=== PATIENT | female | born 1935 | race African-American/Black ===

== ENCOUNTER → 2016-06-06 | Outpatient (CLI) | payer MEDICARE ==
[2015-09-13 13:50] VITALS: BP 147/72
[~2016-06-06] MED LIST: AMLO10TA2 PO; ATOR40TA PO; HYDR-2868 PO; METF500T4 PO; OMEP20TA63 PO; POTA10TA5 PO; VALS1TAB22 PO
--- NOTE | 2016-06-06 12:13 | FMS ---
EXAM: Chest, 2 views. HISTORY: Cough. COMPARISON: 09/13/2015. FINDINGS: Frontal and lateral views of the chest are obtained. There is suspected bilateral lower lobe atelectasis. There is no effusion, consolidation, or pneumothorax. There is mild cardiomegaly.. There is suspected small hiatal hernia. There is a tortuous thoracic aorta. IMPRESSION: Suspected bilateral lower lobe atelectasis.
--- NOTE | 2016-06-06 12:14 | FMS ---
EXAM: Bilateral knees, 3 views. HISTORY: Pain. COMPARISON: None. FINDINGS: Frontal, lateral and oblique views of both knees are obtained. There is moderate bilateral medial compartment joint space narrowing and subchondral sclerosis and moderate to severe right and moderate left medial compartment spurring. There is no fracture, dislocation or subluxation. No joint effusion is seen. IMPRESSION: 1. 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 2. No acute osseous finding.
== END ==
LOC: FMSRAD 11:50
PROVIDERS: ATTEND Family Medicine